=== PATIENT | male | born 1950 | race African-American/Black ===

== ENCOUNTER 2019-04-20 05:58 | Day surgery (SDC) | payer MEDICARE, OTHER ==
--- NOTE | 2019-04-17 15:15 | Pre-op HX & Phy Repo 2 SIG ---
DATE OF ADMISSION: 04/20/2019 DATE OF ANTICIPATED SURGERY: 04/20/2019. PREOPERATIVE DIAGNOSIS: Macular pucker, left eye. 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 Distortion has been present several months and he was diagnosed with an epiretinal membrane as well as cataracts. He underwent cataract surgery in both eyes within the last few months and he was admitted for the macular pucker peel on the left. PAST MEDICAL HISTORY: Remarkable for elevated cholesterol. SOCIAL HISTORY: He is a former smoker. ALLERGIES: He has no allergies. MEDICATIONS: He is on simvastatin and ezetimibe 10/10 mg. PHYSICAL EXAMINATION: Best vision prior to admission was 20/25 in the right eye, 20/80 in the left. Pressures of 16. The anterior segments were quiet. There were well-positioned lens implants in both eyes. Fundus examination of the right eye appeared benign. The left showed a small epiretinal membrane centrally as well as a small tributary branch retinal vein occlusion, which appeared possibly old. General physical examination was benign. ASSESSMENT: Epiretinal membrane, left eye. PLAN: The plan is to perform a pars plana vitrectomy with peeling of the epiretinal membrane on the left. The risks and benefits of surgery were gone over with the patient with potential for infection, retinal detachment, hemorrhage, and remote possibility of loss of the eye or need for additional operations. The patient understands and consents to the surgery, which is to be performed on Saturday morning. Marty Amador M.D. DR: SULLY JOB#: [id number] CC:
[~2019-04-20] VITALS: Ht 182.9 cm; Wt 78.0 kg
[2019-04-20] VITALS (8 sets, daily range): BP systolic 124–154; BP diastolic 76–89
[2019-04-20] MEDS ORDERED: Pred Forte 1% Opth Susp 1ml LEFT EYE SCH (06:00)
[2019-04-20] MEDS: Flurbiprofen 0.03% Opth Sol 2.5ml LEFT EYE SCH ×3 (06:37→07:06)
[2019-04-20] MEDS: Cyclopentolate 1% Opth Sol 2ml LEFT EYE SCH ×3 (06:37→07:06)
[2019-04-20] MEDS: Phenylephrine 2.5% Op 2ml Soln LEFT EYE SCH ×3 (06:37→07:06)
[2019-04-20] MEDS: Vigamox Opth Soln 3ml LEFT EYE SCH ×3 (06:37→07:06)
[2019-04-20] MEDS ORDERED: Vigamox Opth Soln 3ml ONE (07:00)
[2019-04-20] MEDS ORDERED: Phenylephrine 2.5% Op 2ml Soln ONE (07:00)
[2019-04-20] MEDS ORDERED: Cyclopentolate 1% Opth Sol 2ml ONE (07:00)
[2019-04-20 07:01] LABS: BASOPHILS % (AUTO) 0.9 % (0.0-2.0); EOSINOPHILS % (AUTO) 1.7 % (0.0-3.0); HEMATOCRIT 42.6 % (42.0-52.0); LYMPHOCYTES % (AUTO) 20.9 % (20.0-45.0); MEAN CORPUSCULAR VOLUME 89 FL (80-99); MONOCYTES % (AUTO) 11.5 % (1.0-10.0); PLATELET COUNT 192 K/UL (150-450); RED CELL DISTRIBUTION WIDTH 12.9 % (11.6-14.8); WHITE BLOOD COUNT 7.3 K/UL (4.8-10.8)
[2019-04-20] MEDS ORDERED: EPINEPHrine 1mg/1ml Amp ONE (07:03)
[2019-04-20] MEDS ORDERED: Lidocaine 2% MPF 5ml Vial INJ ONE ×2 (07:05→07:30)
[2019-04-20] MEDS ORDERED: Tetracaine 0.5% Opth 4ml Soln ONE (07:20)
[2019-04-20 07:27] LABS: ANION GAP 7 mmol/L (5-15); BLOOD UREA NITROGEN 21 mg/dL (7-18); CALCIUM 8.8 MG/DL (8.5-10.1); CARBON DIOXIDE 26 MMOL/L (21-32); CHLORIDE 108 MMOL/L (98-107); CREATININE 1.5 MG/DL (0.55-1.30); POTASSIUM 4.6 MMOL/L (3.5-5.1); SODIUM 141 MMOL/L (136-145)
[2019-04-20] MEDS ORDERED: BSS 15ml BTL ONE (07:30)
[2019-04-20] MEDS ORDERED: Lidocaine 1% MPF 10mg/ml 5ml ONE (07:30)
[2019-04-20] MEDS ORDERED: Polysporin Opth Oint 3.5gm ONE (07:30)
[2019-04-20] MEDS ORDERED: Sodium Hyaluronate 10 mg/ml 0.85ml ONE (07:30)
[2019-04-20] MEDS ORDERED: Bupivacaine 0.75% 30ml vial INJ ONE (07:30)
[2019-04-20] MEDS ORDERED: Dexamethasone 4mg/ml vial ONE (07:30)
[2019-04-20] MEDS ORDERED: Povidone-Iodine 5% opth solution ONE (07:30)
[2019-04-20] MEDS ORDERED: BSS 500ml btl ONE (07:30)
[2019-04-20] MEDS ORDERED: Propofol 200mg/20ml IV ONE (07:30)
[2019-04-20] MEDS ORDERED: LR 1000ml ONE (07:30)
[2019-04-20] MEDS ORDERED: Sterile Water Irrig 1000ml IRRIG ONE (07:30)
[2019-04-20] MEDS ORDERED: fentaNYL 100 mcg/2 mL IV ONE (07:30)
[2019-04-20] MEDS ORDERED: Kenalog-10 5ml Inj ONE (07:30)
[2019-04-20] MEDS ORDERED: Midazolam 2mg/2ml Inj ONE (07:30)
[2019-04-20] MEDS ORDERED: NS Irrig 1000ml ONE (07:30)
[2019-04-20] MEDS ORDERED: Pred Forte 1% Opth Susp 1ml ONE (07:45)
[2019-04-20] MEDS ORDERED: fentaNYL 100 mcg/2 mL IV PRN (07:45)
[2019-04-20] MEDS ORDERED: DiphenhydrAMINE 50mg/ml Inj IVP PRN (07:45)
[2019-04-20] MEDS ORDERED: Indocyanine Green 25mg Inj INJ ONE (07:45)
[2019-04-20] MEDS ORDERED: Atropine Inj 1mg/10ml Syr IV PRN (07:45)
[2019-04-20] MEDS ORDERED: Midazolam 2mg/2ml Inj IVP PRN (07:45)
--- NOTE | 2019-04-20 08:09 | Anethesia Preoperative Eval ---
Anesthesia Pre-op PMH/ROS General Date of Evaluation: Apr 20, 2019 Time of Evaluation: 07:30 Anesthesiologist: reymundo ASA Score: ASA 2 Mallampati Score Class I : Soft palate, uvula, fauces, pillars visible Class II: Soft palate, uvula, fauces visible Class III: Soft palate, base of uvula visible Class IV: Only hard plate visible Mallampati Classification: Class II Surgeon: fabiano Diagnosis: macular pucker left eye Surgical Procedure: pars plana vitrectomg icg pucker vanessa left eye Anesthesia History: none Social History: smoking - nonsmoker Family History: no anesthesia problems Allergies: Coded Allergies: No Known Allergies (Unverified , 04/17/19) Medications: see eMAR Patient NPO?: Yes Past Medical History HEENT: Reports: cataract (L), cataract (R), NEWHALEN (L), NEWHALEN (R), other - tinnitus PSxH Narrative: tonsillectomy, dental implants Anesthesia Pre-op Phys. Exam Physician Exam Last Vital Signs Date Time Temp Pulse Resp B/P (MAP) Pulse Ox O2 Delivery O2 Flow Rate FiO2 04/20/19 06:48 Room Air 04/20/19 06:41 97.3 74 18 154/89 99 Constitutional: NAD Neurologic: CN 2-12 intact Cardiovascular: RRR Respiratory: CTA Gastrointestinal: S/NT/ND Airway Exam Mallampati Score: Class II MO: full Neck: flexible TMD: 2fb ROM: full Teeth: intact Anesthesia Pre-op A/P Labs Hematology Test 04/20/19 06:30 White Blood Count 7.3 K/UL (4.8-10.8) Red Blood Count 4.80 M/UL (4.70-6.10) Hemoglobin 14.0 G/DL (14.2-18.0) L Hematocrit 42.6 % (42.0-52.0) Mean Corpuscular Volume 89 FL (80-99) Mean Corpuscular Hemoglobin 29.3 PG (27.0-31.0) Mean Corpuscular Hemoglobin Concent 33.0 G/DL (32.0-36.0) Red Cell Distribution Width 12.9 % (11.6-14.8) Platelet Count 192 K/UL (150-450) Mean Platelet Volume 7.8 FL (6.5-10.1) Neutrophils (%) (Auto) 65.0 % (45.0-75.0) Lymphocytes (%) (Auto) 20.9 % (20.0-45.0) Monocytes (%) (Auto) 11.5 % (1.0-10.0) H Eosinophils (%) (Auto) 1.7 % (0.0-3.0) Basophils (%) (Auto) 0.9 % (0.0-2.0) Chemistry Test 04/20/19 07:00 Sodium Level 141 MMOL/L (136-145) Potassium Level 4.6 MMOL/L (3.5-5.1) Chloride Level 108 MMOL/L (98-107) H Carbon Dioxide Level 26 MMOL/L (21-32) Anion Gap 7 mmol/L (5-15) Blood Urea Nitrogen 21 mg/dL (7-18) H Creatinine 1.5 MG/DL (0.55-1.30) H Estimat Glomerular Filtration Rate 56.1 mL/min (>60) Glucose Level 112 MG/DL (74-106) H Calcium Level 8.8 MG/DL (8.5-10.1) Risk Assessment & Plan Assessment: asa2 Plan: mac Status Change Before Surgery: No Pre-Antibiotics Drug: Flora Jack MD Apr 20, 2019 08:09
--- NOTE | 2019-04-20 08:47 | Pre-Procedure Note/Attestation ---
Pre-Procedure Note/Attestation Complete Prior to Procedure Planned Procedure: left Procedure Narrative: PPV, ICG assisted membrane peel, Kenalog injection Left eye Indications for Procedure Pre-Operative Diagnosis: Macular pucker Left eye Attestation I attest that I discussed the nature of the procedure; its benefits; risks and complications; and alternatives (and the risks and benefits of such alternatives ), prior to the procedure, with the patient (or the patient's legal data entry representative). I attest that, if there was a reasonable possibility of needing a blood transfusion, the patient (or the patient's legal data entry representative) was given the [facility] standardized written summary, pursuant to the Darrius Los Alvarez Blood Safety Act ([place] Health and Safety Code # 1645, as amended). I attest that I re-evaluated the patient just prior to the surgery and that there has been no change in the patient's H&P, except as documented below: Marty Amador MD Apr 20, 2019 08:47
--- NOTE | 2019-04-20 08:48 | Brief Operative Note ---
Immediate Post Operative Note Operative Note Chief Complaint: Blurred and distorted vision Left eye Pre-op Diagnosis: Macular pucker Left eye Procedure: PPV, ICG assisted membrane peel, Kenalog injection Left eye Post-op Diagnosis: same as pre-op Surgeon: fabiano Anesthesiologist: Ted Anesthesia: MAC Specimen: none Complications: none Condition: stable Fluids: Per anesthesia Estimated Blood Loss: none Drains: none Implant(s) used?: No Marty Amador MD Apr 20, 2019 08:48
[2019-04-20] MEDS ORDERED: HYDROcodone/Acetamin 5/325 tab ORAL PRN (09:00)
--- NOTE | 2019-04-20 12:04 | Immediate Post-Op Evaluation ---
Immediate Post-Op Evalulation Immediate Post-Op Evalulation Procedure: pars plana, vitrectomy, icg, pucker peel left eye Date of Evaluation: Apr 20, 2019 Time of Evaluation: 08:49 IV Fluids: 225ml lr Blood Products: none Estimated Blood Loss: negligible Blood Pressure Systolic: 138 Blood Pressure Diastolic: 82 Pulse Rate: 64 Respiratory Rate: 18 O2 Sat by Pulse Oximetry: 100 Temperature (Fahrenheit): 97.1 Pain Score (1-10): 0 Nausea: No Vomiting: No Complications none Patient Status: awake, reacts, patent Hydration Status: adequate Drug: Flora Jack MD Apr 20, 2019 12:04
--- NOTE | 2019-04-20 12:05 | 48 Hour Post Anesthesia Eval ---
Post Anesthesia Evaluation Procedure: pars plana, vitrectomy, icg, pucker peel left eye Date of Evaluation: Apr 20, 2019 Time of Evaluation: 08:51 Blood Pressure Systolic: 124 0: 80 Pulse Rate: 61 Respiratory Rate: 18 Temperature (Fahrenheit): 97.1 O2 Sat by Pulse Oximetry: 100 Airway: patent Nausea: No Vomiting: No Pain Intensity: 0 Hydration Status: adequate Cardiopulmonary Status: stable Mental Status/LOC: patient returned to baseline Post-Anesthesia Complications: none Follow-up care needed: N/A Flora Palomino MD Apr 20, 2019 12:05
--- NOTE | 2019-04-21 11:22 | Cardiology Report ---
APPROVED REPORT EKG Measurement Heart [id number] Normal sinus rhythm Normal ECG
--- NOTE | 2019-04-22 13:45 | Operative Note - Dictated ---
DATE OF OPERATION: 04/20/2019 PREOPERATIVE DIAGNOSIS: Macular pucker, left eye. POSTOPERATIVE DIAGNOSIS: Macular pucker, left eye. PROCEDURES: 1. Pars plana vitrectomy. 2. ICG-assisted membrane peel. 3. Kenalog injection, left eye. SURGEON: Marty Amador M.D. VETERINARY MEDICINE SCIENTIST: None. ANESTHESIA: Local with sedation, Dr. Caceres. JUSTIFICATION FOR SURGERY: This 68-year-old gentleman developed distortion of vision in the left eye and was found to have a moderately dense epiretinal membrane. BRIEF NOTE: The patient was brought to the operative room, placed on the OR table in supine position. After a time-out was performed and agreed upon by the staff, and initial monitoring secured by anesthesia, retrobulbar and Van Lint blocks were given in the standard way. When the blocks taken effect, he was prepped and draped in normal manner. The lid speculum was inserted into the left eye. Using a 23-gauge trocar system, cannulas were placed in all except infranasal quadrant. Vitrectomy was begun posterior to the iris lens plane. A central core vitrectomy was done followed by peripheral vitrectomy leaving a small vitreous skirt. The posterior hyaloid had detached and this was removed without difficulty. A posterior viewing lens was then inserted on the eye and the macular pucker visualized. One drop of ICG solution and glucose was placed on the retina and left for 30 seconds. This produced minimal staining. The membrane was engaged superior and nasal to the macula. Using the ILM forceps, the membrane and underlying ILM were gently peeled in 1 piece in an area roughly 3 disc diameters in size. The macula was let clean and no bleeding was encountered or retinal tears. The remaining debris was removed from the globe using the vitreous cutter. Scleral depression was carefully done and no peripheral breaks, tears, or detachments were seen. No evidence of lattice degeneration was noted. The 2 superior cannulas were then removed from the eye and a single suture of 8-0 Vicryl was placed with a surgeon's knot and the knot buried. The infusion was disconnected and Kenalog, 1 mg was injected through the infusion cannula. This was also removed and similarly closed with 8-0 Vicryl. Subconjunctival Decadron and gentamicin were then injected and topical Maxitrol ointment, prednisolone drops, and moxifloxacin drops were instilled. The eye was patched and shielded. The patient was taken to recovery in excellent condition. There were no complications. Marty Amador M.D. DR: AKHIL JOB#: [id number] CC: Marty Amador M.D.; Fax#: [phone]
== END 2019-04-20 09:30 | disposition home or self-care (01) ==
LOC: SUR 05:58
DX: H35.372 Puckering of macula, left eye (principal); E78.00 Pure hypercholesterolemia, unspecified; Z88.8 Allergy status to other drugs, medicaments and biological substances
CPT/HCPCS: 36415; 67042; 80048; 85025; 93005; J0171; J1100; J2250; J2704; J3010; J3301; J3470; J3490; 94003; 94150